=== PATIENT | male | born 1970 | race Caucasian/White ===

== ENCOUNTER 2017-08-23 11:40 | Emergency (ER) | payer OTHER ==
[2017-08-23 12:07] VITALS: BP 143/94
[2017-08-23] MEDS ORDERED: ACETAMINOPHEN 325 MG TABLET PO STA (12:11)
--- NOTE | 2017-08-23 12:11 | ED Physician Documentation ---
History of Present Illness - Stated complaint Stated Complaint: LUMPS ON R LEG X 2 - Chief complaint Chief Complaint: General - History obtained from History obtained from: Patient - History of Present Illness Timing: Other (46-year-old gentleman with history of a recent diagnosis of mastocytosis undergoing workup, not under treatment at this juncture who just got back from a long car trip 2 days ago presents with 2 days of right lower extremity pain with painful swellings in the popliteal area and medial hamstring area. There is no associated chest pain or trouble breathing.) Review of Systems Constitutional: denies: Fever, Chills Cardiac: denies: Chest pain / pressure, Palpitations Respiratory: denies: Dyspnea, Cough PD PAST MEDICAL HISTORY - Past Medical History Past Medical History: Yes Cardiovascular: Atrial fibrillation Other Past Medical History: Advanced Maculopapular Cutaneous Mastocytosis - Present Medications Home Medications: Ambulatory Orders Medication Instructions Recorded Confirmed EPINEPHrine [Epinephrine] 0.3 mg IJ ONCE PRN #2 auto.[email or web address] 08/23/17 Metoprolol Succinate [Toprol Xl] 08/23/17 - Allergies Allergies/Adverse Reactions: Allergies Allergy/AdvReac Type Severity Reaction Status Date / Time aspirin Allergy Unknown Verified 08/23/17 11:52 codeine Allergy Unknown Verified 08/23/17 11:52 NSAIDS (Non-Steroidal Allergy Unknown Verified 08/23/17 11:52 Anti-Inflamma tetanus and diphtheria Allergy Unknown Verified 08/23/17 11:52 toxoids - Social History Does the pt smoke?: No Smoking Status: Never smoker PD ED PE NORMAL - Vitals Vital signs reviewed: Yes - General General: Alert and oriented X 3, No acute distress - Neck Neck: Supple, no meningeal sign, No bony TTP - Extremities Extremities: Other (There is mild tenderness in the popliteal fossa and some painful phlebitis in the medial hamstring area without calf asymmetry or edema.) - Neuro Neuro: Alert and oriented X 3, Normal speech Results - Vitals Vitals: Vital Signs - 24 hr 08/23/17 11:53 Temperature 36.6 C Heart Rate 69 Respiratory 18 Rate Blood Pressure 143/94 H O2 Saturation 97 Oxygen O2 Source Room air - Rads (name of study) RLE Sono Radiology: Prelim report reviewed (no DVT per Dr Contreras) PD MEDICAL DECISION MAKING - ED course ED course: He does not have a DVT. We were talking about mastocytosis and avoidance of allergic triggers. He mentions that he was not able to fill the EpiPen's he was prescribed by his oncologist because they were too expensive so I gave him a prescription for the generic. Departure - Departure Disposition: 01 Home, Self Care Clinical Impression: Leg pain Qualifiers: Laterality: right Qualified Code(s): M79.604 - Pain in right leg Condition: Good Record reviewed to determine appropriate education?: Yes Instructions: ED Acute Pain [facility] Prescriptions: EPINEPHrine [Epinephrine] 0.3 mg IJ ONCE PRN #2 auto.injct PRN Reason: Allergy Symptoms Comments: Call your doctor to arrange a follow-up appointment, make the next available appointment. In the interim, return anytime if worse or if new symptoms develop. Your blood pressure was elevated today on check into the emergency department. This does not mean that you have hypertension, it is a common phenomenon to come to the emergency department and have elevated blood pressure. I recommend that you see your primary care physician within the week to have it rechecked when you are feeling better.
--- NOTE | 2017-08-23 13:07 | Ultrasound Report ---
RIGHT LEG VENOUS DUPLEX: 08/23/2017 CLINICAL INDICATION: Pain. TECHNIQUE: Real-time sonographic vascular imaging was performed by the marketing team lead through the right leg utilizing both color flow and Doppler spectral analysis. Multiple sales representative printing paper static images were saved for review. FINDINGS: A right lower extremity venous sonogram is performed revealing the common femoral, superficial femoral, profunda femoris, and popliteal veins to be adequately visualized without intraluminal defects. There is normal venous compression, augmentation, phasicity, and spontaneity of venous flow. In the calf, the visualized more cephalad portions of posterior tibial and peroneal veins are grossly compressible, without filling defects. IMPRESSION: NO EVIDENCE OF DEEP VENOUS THROMBOSIS. TD: 08/23/2017 13:07
== END 2017-08-23 13:07 | disposition home or self-care (01) ==
LOC: ED 11:40
DX: M79.604 Pain in right leg (principal); R03.0 Elevated blood-pressure reading, without diagnosis of hypertension
CPT/HCPCS: 93971; 99283; A9270